=== PATIENT | female | born 1995 | race Caucasian/White ===

== ENCOUNTER 2016-12-18 12:02 | Emergency (ER) | payer OTHER ==
[~2016-12-18] VITALS: Ht 165.1 cm; Wt 66.2 kg
[~2016-12-18 12:02] MED LIST: OXYC-57 PO
[2016-12-18 12:11] VITALS: TEMP 37; Ht 165.1 cm; Wt 66.2 kg
--- NOTE | 2016-12-18 12:25 | EMERGENCY ROOM VISIT NOTE ---
History Report prepared by Mimi: Alex Garrett Under the Supervision of: Dr. Enzo Jovel M.D. First contact with patient: 12:15 Chief Complaint: ABDOMINAL PAIN Stated Complaint: RT SIDED ABD. PAIN/APPENDIX History of Present Illness The patient is a 21 year old female who presents to the Emergency Room with complaints of intermittent right sided abdominal pain starting yesterday around 1700. She currently rates her discomfort as a 5/10 in severity. The patient states that the pain started in the middle and is now on the right side. She additionally states that she is having some nausea, diarrhea, back pain, and she has felt warm. The patient denies any vomiting, urinary symptoms, chest pain , and shortness of breath. Source of History: patient Onset: 1700 yesterday Position: abdomen (right side) Symptom Intensity: 5/10 Timing: intermittent Associated Symptoms: + nausea, + back pain, + diarrhea, No chest pain, No SOB, No vomiting, No urinary symptoms Review of Systems See HPI for pertinent positives & negatives. A total of 10 systems reviewed and were otherwise negative. Family History Appendicitis Social History Smoking Status: Never Smoker Alcohol Use: none Housing Status: lives with family Occupation Status: employed Current/Historical Medications No Active Prescriptions or Reported Meds Allergies Coded Allergies: No Known Allergies (Unverified , 04/06/07) Physical Exam Vital Signs Date Time Temp Pulse Resp B/P (MAP) Pulse Ox O2 Delivery O2 Flow Rate FiO2 12/18/16 14:14 73 16 130/62 100 Room Air 12/18/16 13:08 75 16 134/59 100 Room Air 12/18/16 12:11 37.0 84 18 125/64 100 Room Air Physical Exam GENERAL: Patient is uncomfortable appearing and in moderate distress. HEENT: No acute trauma, normocephalic atraumatic, mucous membranes moist, no nasal congestion, no scleral icterus. NECK: No stridor, no adenopathy, no meningismus, trachea is midline. LUNGS: No dyspnea. Clear to auscultation and equal bilaterally. No wheeze, no rhonchi. HEART: Regular rate and rhythm. No murmurs, rubs, gallops appreciated. ABDOMEN: Moderate right lower quadrant tenderness to palpation and sits up in bed when pressed. There is guarding. Soft, bowel sounds positive, no masses appreciated, no peritonitis. BACK: No midline tenderness, no CVA tenderness EXTREMITIES: Normal motion all extremities, no cyanosis, no edema. NEUROLOGIC: Alert and oriented, no acute motor or sensory deficits, no focal weakness, cranial nerves grossly intact. SKIN: No rash, no jaundice, no diaphoresis. Medical Decision & Procedures ER Provider Diagnostic Interpretation: Radiology results and stated below per my review and radiologist interpretation: APPENDIX ULTRASOUND CLINICAL HISTORY: 21 years-old Female presenting with RLQ abdominal pain. TECHNIQUE: Real-time grayscale and limited color Doppler ultrasound imaging of the right lower quadrant was performed to evaluate the appendix. COMPARISON: None. FINDINGS: Appendix not visualized. However, free fluid noted in the right lower quadrant. No hyperechogenicity of fat. IMPRESSION: Appendix not visualized. This does not exclude the diagnosis of appendicitis, especially given the presence of adjacent free fluid in the right lower quadrant. Electronically signed by: Wilber Nascimento M.D. 12/18/2016 1:49 PM Dictated Date/Time: 12/18/2016 1:48 PM PELVIC COMPLETE NON OB CLINICAL HISTORY: 21 years-old Female presenting with RLQ pain, nausea/vomiting, last menstrual period 2 weeks ago. TECHNIQUE: Real-time grayscale and color and spectral Doppler ultrasound imaging of the pelvis was performed using a transabdominal probe. COMPARISON: None. FINDINGS: Uterus: Normal. Anteverted. The uterus measures 7.5 x 3.0 x 4.3 cm. Endometrial stripe measures 7 mm in thickness. Endometrium normal-appearing. Cervix normal. Right adnexa: Right ovary contains several follicles. Right ovary measures 4.0 x 2.3 x 2.2 cm. Normal color Doppler flow and arterial and venous waveforms within the ovarian parenchyma. Free fluid in the right adnexa. Left adnexa: Left ovary normal. Left ovary measures 1.8 x 1.2 x 1.7 cm. Normal color Doppler flow and arterial and venous waveforms within the ovarian parenchyma. Free fluid in the left adnexa. Other: Trace free fluid, likely physiologic. IMPRESSION: No evidence of ovarian torsion. Normal uterus and ovaries. Free fluid in the adnexa likely physiologic. Electronically signed by: Wilber Nascimento M.D. 12/18/2016 2:17 PM Dictated Date/Time: 12/18/2016 2:15 PM ABD/PELVIS IV CONTRAST ONLY CLINICAL HISTORY: 21 years-old Female presenting with RLQ abdominal pain, free fluid. TECHNIQUE: Multidetector CT of the abdomen and pelvis was performed after the administration of intravenous contrast. IV contrast: 93 mL of Optiray 320. A dose lowering technique was used consistent with the principles of ALARA (as low as reasonably achievable). COMPARISON: None. CT DOSE (mGy.cm): The estimated cumulative dose is 356.38 mGy.cm. 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 Lung bases: Lung bases clear. Normal heart size. No pericardial or pleural effusion. Liver: Normal morphology. No liver lesion. Patent hepatic vasculature. Biliary: No intrahepatic or extrahepatic biliary ductal dilatation. Normal gallbladder. Pancreas: Normal. Spleen: Mildly enlarged measuring 14.4 cm in maximal sagittal dimension. Adrenal glands: Normal. Kidneys and ureters: Normal. No hydronephrosis. Bladder: Normal. Pelvic organs: Uterus and ovaries normal. Bowel: Normal appendix. No bowel obstruction. Peritoneal cavity: Trace free fluid in the pelvis. Lymph nodes: No enlarged lymph nodes in the abdomen or pelvis. Vasculature: Aorta and IVC patent and normal in caliber. Abdominal wall: Normal. Musculoskeletal: Normal. IMPRESSION: 1. No appendicitis or acute intra-abdominal pathology. 2. Mild splenomegaly. Correlate with recent viral infection. Follow-up ultrasound in 3 months could be considered to ensure resolution. Electronically signed by: Wilber Nascimento M.D. 12/18/2016 3:08 PM Dictated Date/Time: 12/18/2016 3:03 PM Laboratory Results 12/18/16 12:25 Red Blood Count 4.95, Mean Corpuscular Volume 83.6, Mean Corpuscular Hemoglobin 29.3, Mean Corpuscular Hemoglobin Concent 35.0, Mean Platelet Volume 11.1, Neutrophils (%) (Auto) 68.1, Lymphocytes (%) (Auto) 21.2, Monocytes (%) (Auto) 7.7, Eosinophils (%) (Auto) 2.2, Basophils (%) (Auto) 0.4, Neutrophils # (Auto) 4.65, Lymphocytes # (Auto) 1.45, Monocytes # (Auto) 0.53, Eosinophils # (Auto) 0.15, Basophils # (Auto) 0.03 12/18/16 12:25 Test 12/18/16 00:00 12/18/16 12:25 Urine Color YELLOW Urine Appearance CLEAR (CLEAR) Urine pH 5.5 (4.5-7.5) Urine Specific [place] 1.014 (1.000-1.030) Urine Protein NEG (NEG) Urine Glucose (UA) NEG (NEG) Urine Ketones NEG (NEG) Urine Occult Blood NEG (NEG) Urine Nitrite NEG (NEG) Urine Bilirubin NEG (NEG) Urine Urobilinogen NEG (NEG) Urine Leukocyte Esterase NEG (NEG) Urine WBC (Auto) 1-5 /hpf (0-5) Urine RBC (Auto) 0-4 /hpf (0-4) Urine Hyaline Casts (Auto) 0 /lpf (0-5) Urine Epithelial Cells (Auto) 5-10 /lpf (0-5) Urine Bacteria (Auto) NEG (NEG) Urine Test NEG (NEG) White Blood Count 6.84 K/uL (4.8-10.8) Red Blood Count 4.95 M/uL (4.2-5.4) Hemoglobin 14.5 g/dL (12.0-16.0) Hematocrit 41.4 % (37-47) Mean Corpuscular Volume 83.6 fL (80-100) Mean Corpuscular Hemoglobin 29.3 pg (25-34) Mean Corpuscular Hemoglobin Concent 35.0 g/dl (32-36) Platelet Count 223 K/uL (130-400) Mean Platelet Volume 11.1 fL (7.4-10.4) Neutrophils (%) (Auto) 68.1 % Lymphocytes (%) (Auto) 21.2 % Monocytes (%) (Auto) 7.7 % Eosinophils (%) (Auto) 2.2 % Basophils (%) (Auto) 0.4 % Neutrophils # (Auto) 4.65 K/uL (1.4-6.5) Lymphocytes # (Auto) 1.45 K/uL (1.2-3.4) Monocytes # (Auto) 0.53 K/uL (0.11-0.59) Eosinophils # (Auto) 0.15 K/uL (0-0.5) Basophils # (Auto) 0.03 K/uL (0-0.2) RDW Standard Deviation 40.1 fL (36.4-46.3) RDW Coefficient of Variation 13.2 % (11.5-14.5) Immature Granulocyte % (Auto) 0.4 % Immature Granulocyte # (Auto) 0.03 K/uL (0.00-0.02) Anion Gap 6.0 mmol/L (3-11) Est Creatinine Clear Calc Drug Dose 115.4 ml/min Estimated GFR () 144.6 Estimated GFR (Non- 124.7 BUN/Creatinine Ratio 21.5 (10-20) Calcium Level 8.8 mg/dl (8.5-10.1) Total Bilirubin 0.3 mg/dl (0.2-1) Direct Bilirubin < 0.1 mg/dl (0-0.2) Aspartate Amino Transf (AST/SGOT) 12 U/L (15-37) Alanine Aminotransferase (ALT/SGPT) 24 U/L (12-78) Alkaline Phosphatase 57 U/L (45-117) C-Reactive Protein < 0.29 mg/dl (0-0.29) Total Protein 7.6 gm/dl (6.4-8.2) Albumin 4.0 gm/dl (3.4-5.0) Lipase 151 U/L (73-393) Laboratory results as reviewed by me. Medications Administered Medications (Trade) Dose Ordered Sig/Winter Route Start Time Stop Time Status Last Admin Dose Admin Ketorolac Tromethamine (Toradol Inj) 30 mg NOW STAT IV 12/18/16 15:22 12/18/16 15:23 DC 12/18/16 15:47 30 MG ED Course 1215: The patient was evaluated in room A4. A complete history and physical exam was performed. 1431: I discussed the patient's case with Dr. Nunez, Surgery, and he wants me to order the CT scan. 1437: I reevaluated the patient, and she is stable 1520: Reevaluated the patient. She is feeling fine, and I discussed discharge instructions with her. She will be discharged home. 1522: Toradol 30mg IV Medical Decision Differential: Appendicitis, UTI, Renal Colic, Bowel Obstruction, MSK, Ectopic, Ovarian Cyst, PID/TOA, amongst other pathologies entertained. 21 yr old female with RLQ abdominal pain worse with movement and quite TTP. No fever here, wbc normal, crp zero. UA clear. US without appendix found though there is free fluid. With fluid and amount of RLQ pain discussed with Gen Surg who advised CT for further evaluation. Discussed with patient/mother who agree. CT fortunately without acute findings. Trace fluid uncertain etiology in pelvis. Spleen mildly enlarged though not near her pain and thus advised US 3 months. Advised follow up with PCP. Reviewed symptoms rted. Consults Time Called: 142 Consulting Physician: Dr. Nunez, Surgery Returned Call: [phone] I discussed the patient's case with Dr. Nunez, Surgery, and he wants me to order the CT scan. Impression Primary Impression: RLQ abdominal pain Additional Impressions: Spleen enlarged Free fluid in pelvis Scribe Attestation The scribe's documentation has been prepared under my direction and personally reviewed by me in its entirety. I confirm that the note above accurately reflects all work, treatment, procedures, and medical decision making performed by me. Departure Information Dispostion Home / Self-Care Prescriptions No Active Prescriptions or Reported Meds Referrals No Doctor, Assigned (PCP) Forms HOME CARE DOCUMENTATION FORM, IMPORTANT VISIT INFORMATION Patient Instructions My [facility] Additional Instructions Rest and keep well hydrated over the next 48 hours. Return for further evaluation if fevers, vomiting, increased pain, passing out, or other concerns. Follow up with your primary provider for repeat evaluation in near future and to discuss having Ultrasound of Spleen in 3 months. Problem Qualifiers
[2016-12-18 12:33] LABS: BASO % 0.4 %; BASO ABS # 0.03 K/uL (0-0.2); COMPLETE YES; EOS % 2.2 %; HEMATOCRIT 41.4 % (37-47); IG% 0.4 %; LYMPH % 21.2 %; LYMPH ABS # 1.45 K/uL (1.2-3.4); MEAN CELL VOLUME 83.6 fL (80-100); MEAN CORPUSCULAR HEMOGLOBIN 29.3 pg (25-34); MEAN PLATELET VOLUME 11.1 fL (7.4-10.4); MONO % 7.7 %; NEUT % 68.1 %; PLATELET COUNT 223 K/uL (130-400); RED BLOOD COUNT 4.95 M/uL (4.2-5.4); WHITE BLOOD COUNT 6.84 K/uL (4.8-10.8)
[2016-12-18 12:49] LABS: BLOOD UREA NITROGEN 15 mg/dl (7-18); GLUCOSE 92 mg/dl (70-99)
[2016-12-18 12:50] LABS: ALT/SGPT 24 U/L (12-78); BUN/CREATININE RATIO 21.5 (10-20); CALCIUM 8.8 mg/dl (8.5-10.1); CARBON DIOXIDE 25 mmol/L (21-32); CHLORIDE 111 mmol/L (98-107); POTASSIUM 3.9 mmol/L (3.5-5.1); SODIUM 142 mmol/L (136-145)
[2016-12-18 12:52] LABS: ALKALINE PHOSPHATASE 57 U/L (45-117); AST/SGOT 12 U/L (15-37)
[2016-12-18 13:36] LABS: URINE APPEARANCE CLEAR (CLEAR); URINE BILIRUBIN NEG (NEG); URINE COLOR YELLOW; URINE NITRITE NEG (NEG); URINE PH 5.5 (4.5-7.5); URINE SPECIFIC GRAVITY 1.014 (1.000-1.030); UROBILINOGEN NEG (NEG); ZZUR CULT IF INDIC CLEAN CATCH NO
[2016-12-18 13:42] LABS: MANUAL MICROSCOPIC REQUIRED? NO; REVIEW REQ? NO
--- NOTE | 2016-12-18 13:50 | DIAGNOSTIC IMAGING REPORT ---
APPENDIX ULTRASOUND CLINICAL HISTORY: 21 years-old Female presenting with RLQ abdominal pain. TECHNIQUE: Real-time grayscale and limited color Doppler ultrasound imaging of the right lower quadrant was performed to evaluate the appendix. COMPARISON: None. FINDINGS: Appendix not visualized. However, free fluid noted in the right lower quadrant. No hyperechogenicity of fat. IMPRESSION: Appendix not visualized. This does not exclude the diagnosis of appendicitis, especially given the presence of adjacent free fluid in the right lower quadrant. Electronically signed by: Wilber Nascimento M.D. 12/18/2016 1:49 PM Dictated Date/Time: 12/18/2016 1:48 PM
--- NOTE | 2016-12-18 14:18 | DIAGNOSTIC IMAGING REPORT ---
PELVIC COMPLETE NON OB CLINICAL HISTORY: 21 years-old Female presenting with RLQ pain, nausea/vomiting, last menstrual period 2 weeks ago. TECHNIQUE: Real-time grayscale and color and spectral Doppler ultrasound imaging of the pelvis was performed using a transabdominal probe. COMPARISON: None. FINDINGS: Uterus: Normal. Anteverted. The uterus measures 7.5 x 3.0 x 4.3 cm. Endometrial stripe measures 7 mm in thickness. Endometrium normal-appearing. Cervix normal. Right adnexa: Right ovary contains several follicles. Right ovary measures 4.0 x 2.3 x 2.2 cm. Normal color Doppler flow and arterial and venous waveforms within the ovarian parenchyma. Free fluid in the right adnexa. Left adnexa: Left ovary normal. Left ovary measures 1.8 x 1.2 x 1.7 cm. Normal color Doppler flow and arterial and venous waveforms within the ovarian parenchyma. Free fluid in the left adnexa. Other: Trace free fluid, likely physiologic. IMPRESSION: No evidence of ovarian torsion. Normal uterus and ovaries. Free fluid in the adnexa likely physiologic. Electronically signed by: Wilber Nascimento M.D. 12/18/2016 2:17 PM Dictated Date/Time: 12/18/2016 2:15 PM
[2016-12-18] MEDS ORDERED: OPTIRAY 320 IV PRN (14:45)
--- NOTE | 2016-12-18 15:09 | DIAGNOSTIC IMAGING REPORT ---
ABD/PELVIS IV CONTRAST ONLY CLINICAL HISTORY: 21 years-old Female presenting with RLQ abdominal pain, free fluid. TECHNIQUE: Multidetector CT of the abdomen and pelvis was performed after the administration of intravenous contrast. IV contrast: 93 mL of Optiray 320. A dose lowering technique was used consistent with the principles of ALARA (as low as reasonably achievable). COMPARISON: None. CT DOSE (mGy.cm): The estimated cumulative dose is 356.38 mGy.cm. 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 Lung bases: Lung bases clear. Normal heart size. No pericardial or pleural effusion. Liver: Normal morphology. No liver lesion. Patent hepatic vasculature. Biliary: No intrahepatic or extrahepatic biliary ductal dilatation. Normal gallbladder. Pancreas: Normal. Spleen: Mildly enlarged measuring 14.4 cm in maximal sagittal dimension. Adrenal glands: Normal. Kidneys and ureters: Normal. No hydronephrosis. Bladder: Normal. Pelvic organs: Uterus and ovaries normal. Bowel: Normal appendix. No bowel obstruction. Peritoneal cavity: Trace free fluid in the pelvis. Lymph nodes: No enlarged lymph nodes in the abdomen or pelvis. Vasculature: Aorta and IVC patent and normal in caliber. Abdominal wall: Normal. Musculoskeletal: Normal. IMPRESSION: 1. No appendicitis or acute intra-abdominal pathology. 2. Mild splenomegaly. Correlate with recent viral infection. Follow-up ultrasound in 3 months could be considered to ensure resolution. Electronically signed by: Wilber Nascimento M.D. 12/18/2016 3:08 PM Dictated Date/Time: 12/18/2016 3:03 PM
[2016-12-18] MEDS ORDERED: KETOROLAC TROMETHAMINE 30 MG/ML VIAL IV STA (15:22)
[2016-12-18 15:55] VITALS: BP 129/62; PULSE 78; O2SAT 99
== END 2016-12-18 15:55 | disposition home or self-care (01) ==
LOC: C.EDB 12:03 → C.EDA 15:55
DX: R10.31 Right lower quadrant pain (principal); R16.1 Splenomegaly, not elsewhere classified; R18.8 Other ascites

== ENCOUNTER → 2017-01-04 | Outpatient (CLI) | payer OTHER ==
[~2017-01-04] MED LIST changes: +MULT-506 PO; -OXYC-57 PO
[2017-01-04 17:47] LABS: PREG INTERNAL NEGATIVE QC NEG CLEAR BACKGROUND; PREG INTERNAL POSITIVE QC POS CONTROL LINE
[2017-01-04 17:54] LABS: INR 0.9 (0.9-1.1); PARTIAL THROMBOPLASTIN RATIO 1.1; PROTHROMBIN TIME (PATIENT) 10.1 SECONDS (9.0-12.0)
== END | disposition home or self-care (01) ==
LOC: C.LABBFT 12:48
DX: Z01.818 Encounter for other preprocedural examination (principal)